=== PATIENT | female | born 2000 | race Hispanic/Latino ===

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

== ENCOUNTER 2018-03-13 21:15 | Inpatient (IN) | payer MEDICAID, OTHER, SELFPAY ==
[2018-03-13 21:43] VITALS: BMI 27.4
[2018-03-13] MEDS: Lactated Ringer's 1,000 ML IV SCH (22:15)
[2018-03-13] MEDS ORDERED: Misoprostol 100 MCG TAB ONE (22:31)
[2018-03-13] MEDS ORDERED: HYDROcodone/Acetaminophen 5/325 mg Tablet PO PRN (22:43)
[2018-03-13] MEDS ORDERED: Ondansetron HCl/PF 4 MG/2 ML Vial IVP PRN (22:43)
[2018-03-13] MEDS ORDERED: Acetaminophen 500 MG TAB PO PRN (22:43)
[2018-03-13] MEDS ORDERED: Lidocaine 1% (PF) 30 ML VIAL SC PRN (22:43)
[2018-03-13] MEDS ORDERED: Misoprostol 100 MCG TAB VAG PRN (22:43)
[2018-03-13] MEDS ORDERED: Ibuprofen 800 MG TAB PO PRN (22:43)
[2018-03-13] MEDS ORDERED: Promethazine HCl 25 MG/ML VIAL IM PRN (22:43)
--- NOTE | 2018-03-13 22:49 | PDOC.LDHP ---
Labor and Delivery H&P Chief complaint: scheduled induction HPI: Patient is a 17 yo at 40.6 by LMP/1t u/s presents for late term induction. She reports good FM, no LOF, vaginal discharge, FLORES, scotoma, LE edema, or pain. She reports occasional contractions and admits to a small amount of vaginal bloody discharge upon arrival to hospital. Current gestational age (weeks): 40 (40.6) Due date: 03/07/18 Dating criteria: last menstrual period, first trimester ultrasound Grav: 1 Para: 0 Current complications: other (anemia of , most recent Hg 9.7 on 02/05/18) Abnormal US findings: No Past Medical History: none Current medications: pre-gt vitamins, iron Previous surgical history: none Social history: none - Physical Exam Vital signs reviewed and normal: yes General: NAD, resting Heart: RRR Lungs: CTAB Abdomen: gravid Extremeties: no edema FHT: category 1 [place] contractions every: q7-10 min - Vaginal Exam cm dilated: 2 (soft) Effacement: 25% Station: -2 - OB Labs Blood type: O RH: positive Antibody Screen: negative HIV: negative RPR: negative HEPSAg: negative 1 hour GCT: negative GBS: negative Urine drug screen: not done Rubella: immune - Assessment L&D Assessment: medically indicated induction at 40.6 by LMP/1t u/s here for IOL for late term. sIUP: labs wnl with exception of anemia. Anemia of : last Hg 9.7, repeat today, continue Fe and PNV FHx of Downs in father of baby's sister: Quad screen negative. Labor: cat 1 strip, cytotec placed at 2245, continue routine labor care and plan for recheck in 3h to determine if need for second cytotec vs pitocin. - Plan Plan: admit to L&D, cervical ripening, labor augmentation if indicated <Eli Carpenter - Last Filed: 03/13/18 22:47> <Chaparro Nolen - Last Filed: 03/13/18 23:08> Allergies/Adverse Reactions: Allergies Allergy/AdvReac Type Severity Reaction Status Date / Time No Known Allergies Allergy Verified 03/13/18 21:39 Attending Addendum - Attending Addendum Date/Time: 03/13/18 [id number] I personally evaluated the patient and discussed the management with Dr. Carpenter. I agree with and repeated the History, Examination, Assessment and Plan documented above with any addition or exceptions noted below. Late term induction. Cytotec placed. Recheck in 4 hours. <Chaparro Nolen - Last Filed: 03/13/18 23:08>
[2018-03-13 23:03] LABS: Hemoglobin 10.2 g/dL (12.0-16.0); Mean Corpuscular HGB CONC 33.8 g/dL (32.0-36.0); Mean Corpuscular Hemoglobin 28.3 pg (25.0-35.0); Mean Corpuscular Volume 83.6 fL (78.0-98.0); Mean Platelet Volume 8.9 fL (7.4-10.4); Platelet Count 246 thou/uL (130-400); RBC Distribution Width 12.9 % (11.5-14.5); White Blood Cell (WBC) Count 11.9 thou/uL (4.8-10.8)
[2018-03-13 23:32] LABS: Syphilis Antibody Nonreactive (Nonreactive); Syphilis Antibody Index 0.03 S/CO (<1.00 Non-Reactive)
[2018-03-14 00:39] LABS: HBSAg Index 0.19 S/CO (0-0.99); Hep B Surf Ag Non-Reactive S/CO (NonReactive)
[2018-03-14] MEDS ORDERED: DISCONTINUE ALL PREVIOUS NARCOTICS FS SCH (02:00)
[2018-03-14] MEDS: Lactated Ringer's 1,000 ML IV SCH ×2 (02:17→06:25)
[2018-03-14] MEDS ORDERED: Lidocaine 1% (PF) 30 ML VIAL ONE (02:20)
[2018-03-14] MEDS ORDERED: Lidocaine HCl/Epinephrine 5 ML AMPUL IJ ONE (02:20)
--- NOTE | 2018-03-14 02:25 | PDOC.LDPN ---
Labor & Delivery Progress Note - Subjective Subjective: painful contractions - Objective Vital signs reviewed and normal: yes General: NAD, resting, breathing through contractions Uterine fundus: palpable contractions Dilation: 3 Effacement: 75% Station: -2 FHT: category 1 [place] contractions every: q2min - Assessment (1) Current Visit: Yes Status: Acute Comment: at 40.6 by LMP/1t u/s here for IOL for late term. sIUP: IOL reviewed, wnl with exception of anemia. Anemia of : last Hg 9.7, repeat today is 10, continue Fe and PNV FHx of Downs in father of baby's sister: Quad screen negative. Labor: cat 1 strip, cytotec placed at 2245, now favorable for pit but pablo q2min currently. Will start pit if no change at next check. Continue routine labor care and plan for recheck in 2h. Patient in pain, will call anesthesia for epidural. Plan: continue plan of care <Eli Carpenter - Last Filed: 03/14/18 02:56> Attending Addendum - Attending Addendum Date/Time: 03/14/18 0621 I personally evaluated the patient and discussed the management with Dr. Carpenter. I agree with the History, Examination, Assessment and Plan documented above with any addition or exceptions noted below. Cat 1, ctx q2-3m. Recheck in 2 hours. Anticipate . <Chaparro Nolen - Last Filed: 03/14/18 06:22>
[2018-03-14] MEDS: Bupivacaine 0.75% 13.4 ML, fentaNYL Citrate/PF 400 MCG in Sodium Chloride 0.9% 78.6 ML EPIDURAL SCH ×2 (02:40→08:14)
[2018-03-14] MEDS ORDERED: Eucerin (Mineral Oil/Petrolatum,White) 30 gm Jar TOP PRN (02:59)
[2018-03-14] MEDS ORDERED: Lactated Ringer's 500 ML IV PRN (02:59)
[2018-03-14] MEDS ORDERED: Acetaminophen 325 MG TAB PO PRN (02:59)
[2018-03-14] MEDS ORDERED: Promethazine HCl 25 MG/ML VIAL IM PRN (02:59)
[2018-03-14] MEDS ORDERED: diphenhydrAMINE 50 MG/ML VIAL IVP PRN (02:59)
[2018-03-14] MEDS ORDERED: Naloxone HCl 0.4 mg/ml Vial IVP PRN ×2 (02:59)
[2018-03-14] MEDS ORDERED: ePHEDrine/0.9% NaCl/PF SYRINGE 50 mg/10 ml SLOW IVP PRN (02:59)
[2018-03-14] MEDS ORDERED: Ondansetron HCl/PF 4 MG/2 ML Vial IVP PRN (02:59)
[2018-03-14] MEDS ORDERED: Communication Order-Pharmacy FS SCH (03:00)
[2018-03-14] MEDS ORDERED: fentaNYL Citrate/PF 400 MCG, Bupivacaine 0.5% 20 ML in Sodium Chloride 0.9% 72 ML EPIDURAL SCH (03:00)
--- NOTE | 2018-03-14 05:04 | PDOC.LDPN ---
Labor & Delivery Progress Note - Subjective Subjective: comfortable - Objective Vital signs reviewed and normal: yes General: NAD, resting Uterine fundus: palpable contractions Dilation: 4 Effacement: 75% Station: -2 FHT: category 1 [place] contractions every: 2min Procedures: SROM- clear fluid - Assessment (1) Current Visit: Yes Status: Acute Plan: continue plan of care -: at 40.6 by LMP/1t u/s here for IOL for late term. sIUP: IOL reviewed, wnl with exception of anemia. Anemia of : last Hg 9.7, repeat today is 10, continue Fe and PNV FHx of Downs in father of baby's sister: Quad screen negative. Labor: cat 1 strip, cytotec placed at 2245, now favorable for pit but pablo q2min currently and making good progress, SVE 4/80/-2. Will start pit if no change at next check. SROM with clear fluid. Continue routine labor care and plan for recheck in 2h. Epidural in place and patient resting comfortably. <Eli Carpenter - Last Filed: 03/14/18 05:02> Attending Addendum - Attending Addendum Date/Time: 03/14/18 0624 I personally evaluated the patient and discussed the management with Dr. Carpenter. I agree with the History, Examination, Assessment and Plan documented above with any addition or exceptions noted below. Cat 1, ctx spaced now to q5m, will start pitocin. Anticipate . <Chaparro Nolen - Last Filed: 03/14/18 06:25>
[2018-03-14] MEDS ORDERED: NS w/ Oxytocin 10 units 500 ML IV SCH (06:30)
--- NOTE | 2018-03-14 08:14 | PDOC.LDPN ---
Labor & Delivery Progress Note - Subjective Subjective: comfortable - Objective Vital signs reviewed and normal: yes General: NAD, resting Uterine fundus: non tender Dilation: 7 Effacement: 90% Station: -2 FHT: category 1 [place] contractions every: q2-4 min IUPC placed: yes - Assessment (1) Current Visit: Yes Status: Acute Plan: continue plan of care -: at 40.6 by LMP/1t u/s here for IOL for late term. sIUP: IOL reviewed, wnl with exception of anemia. Anemia of : last Hg 9.7, repeat today is 10, continue Fe and PNV FHx of Downs in father of baby's sister: Quad screen negative. Labor: cat 1 strip, cytotec placed at 2245, pablo q2-4 min, SVE 7/90/-2. Epidural in place. Pit started at 0630, currently at rate of 6. re-check in 2 hours <Ramón Mishra - Last Filed: 03/14/18 08:11> Attending Addendum - Attending Addendum Date/Time: 03/14/18 2676 I personally evaluated the patient and discussed the management with Dr. Mishra. I agree with the History, Examination, Assessment and Plan documented above with any addition or exceptions noted below. Active labor with expected progress. <Phillip See - Last Filed: 03/14/18 11:37>
--- NOTE | 2018-03-14 10:39 | PDOC.LDPN ---
Labor & Delivery Progress Note - Subjective Subjective: comfortable - Objective Vital signs reviewed and normal: yes General: NAD Dilation: 10 Effacement: 100% Station: 2+ FHT: category 1 [place] contractions every: 3-4 - Assessment (1) Current Visit: Yes Status: Acute Plan: continue plan of care -: at 40.6 by LMP/1t u/s here for IOL for late term. sIUP: IOL reviewed, wnl with exception of anemia. Anemia of : last Hg 9.7, repeat today is 10, continue Fe and PNV FHx of Downs in father of baby's sister: Quad screen negative. Labor: cat 1 strip, cytotec placed at 2245, pablo q2-4 min, SVE complete, +2. Epidural in place. Pitocin stopped 2/2 a period of tachysystole. expectant management
[2018-03-14] MEDS: NS / Oxytocin 40 units/1000ml 1,000 ML IV PRN ×2 (11:59→14:30)
[2018-03-14] MEDS ORDERED: Ampicillin 2 GM in Sodium Chloride 0.9% 100 ML IVPB SCH (12:00)
[2018-03-14] MEDS: HYDROcodone/Acetaminophen 5/325 mg Tablet PO PRN ×2 (13:51→18:12)
--- NOTE | 2018-03-14 13:54 | OP-2 ---
DELIVERING PHYSICIAN: Dr. Ramón Mishra, Dr. Charly Zhang. ATTENDING: Dr. Phillip See. PROCEDURE: Spontaneous vaginal delivery. ANESTHESIA: Epidural. ESTIMATED BLOOD LOSS: 150 mL. PREOPERATIVE DIAGNOSES: 1. Term intrauterine in labor. 2. Induction of labor for late term. 3. Maternal fever. POSTOPERATIVE DIAGNOSIS: 1. Term intrauterine , delivered. 2. Induction of labor for late term. 3. Maternal fever. INDICATIONS: A 17-year-old female G1 ,P1 presented to L&D for induction due to late term. DELIVERY NOTE: This is a 17-year-old female G1, P1-0-0-1, at 40 and 6 weeks who delivered a viable f emale infant at 12:10 p.m. Following an uneventful antepartum course, vigorous female was delivered over an intact perineum in the right occipital anterior position. Anterior shoulder and the remainde r of the body delivered. No nuchal cord. The head was held down and the mouth and nares were bulb s uctioned. Cord clamped after a delay of 1 minute and cord blood was collected. Placenta delivered i ntact in the [place] presentation with a 3-vessel cord noted. Fundal massage was performed and the fu ndus was firm. Cervix and vagina were inspected. A 2 cm right superficial periurethral tear was not ed. The lesion was repaired with 3 simple interrupted sutures of 3-0 Vicryl. Epidural anesthesia wa s sufficient. went to nursery in good condition and will be started on ampicillin and gentamicin secondary to maternal fever of 100.7. Workup for maternal fever was initiated. Apgars w ere 9 and 9 at 1 and 5 minutes respectively. The patient tolerated the delivery well and went to the after routine recovery and care.
[2018-03-14] MEDS ORDERED: Lanolin Ointment 7 GM TUBE TOP PRN (14:02)
[2018-03-14] MEDS ORDERED: diphenhydrAMINE 25 MG CAP PO PRN (14:02)
[2018-03-14] MEDS ORDERED: NS / Oxytocin 40 units/1000ml 1,000 ML IV SCH (14:02)
[2018-03-14] MEDS ORDERED: Benzocaine/Menthol 20-0.5% 60 ML CAN TOP PRN (14:02)
[2018-03-14] MEDS ORDERED: Adacel (T-DAP) 0.5 ML VIAL IM ONE (14:02)
[2018-03-14] MEDS ORDERED: Milk Of Magnesia 30 ML UDCUP PO PRN (14:02)
[2018-03-14] MEDS ORDERED: Bisacodyl 10 MG SUPP PR PRN (14:02)
[2018-03-14] MEDS ORDERED: Preparation H Ointment 28 GM TUBE PR PRN (14:02)
[2018-03-14] MEDS: Ferrous Sulfate 325 MG TAB PO SCH (14:50)
[2018-03-14] MEDS: Ibuprofen 800 MG TAB PO SCH ×2 (14:50→21:29)
[2018-03-14] MEDS: Docusate Calcium (SURFAK) 240 MG CAP PO SCH (21:30)
[2018-03-15] MEDS: Lactated Ringer's 1,000 ML IV SCH ×4 (00:14→23:08)
[2018-03-15] MEDS: Ibuprofen 800 MG TAB PO SCH ×3 (05:54→21:14)
[2018-03-15 06:58] LABS: Hemoglobin 8.6 g/dL (12.0-16.0); Mean Corpuscular HGB CONC 32.4 g/dL (32.0-36.0); Mean Corpuscular Hemoglobin 28.1 pg (25.0-35.0); Mean Corpuscular Volume 86.5 fL (78.0-98.0); Mean Platelet Volume 8.8 fL (7.4-10.4); Platelet Count 173 thou/uL (130-400); RBC Distribution Width 12.9 % (11.5-14.5); Red Blood Cell (RBC) Count 3.06 mill/uL (4.00-5.20); White Blood Cell (WBC) Count 14.9 thou/uL (4.8-10.8)
[2018-03-15] MEDS: Ferrous Sulfate 325 MG TAB PO SCH ×2 (08:04→16:58)
[2018-03-15] MEDS: Docusate Calcium (SURFAK) 240 MG CAP PO SCH ×2 (08:04→21:13)
[2018-03-15] MEDS: Prenatal Vitamin 1 TAB PO SCH (08:04)
--- NOTE | 2018-03-15 10:42 | PDOC.PP ---
Addendum entered and electronically signed by Ramón Mishra MD 03/15/18 11:16: Maternal Fever - received 1 dose of amp/gent - afebrile since delivery, will monitor Original Note: Post Progress Note Post Day #: 1 Subjective: This morning patient states she is doing well. Ambulating and voiding without difficulty. No fevers overnight. No N/V/D. She has not had a BM or flatus. She reports very minimal bleeding overnight. PO intake tolerated: yes Flatus: no Ambulation: yes Vital Signs (12 hours) Temp Pulse Resp BP 03/15/18 07:15 97.9 F 69 18 106/60 03/15/18 04:05 98.2 F 82 16 104/54 L 03/14/18 23:45 97.7 F 65 18 100/59 L Weight Weight 74.843 kg - Physical Examination General: NAD Cardiovascular: no m/r/g, RRR Respiratory: clear to auscultation bilaterally Abdominal: + bowel sounds, no distention Fundus firm & at: 3cm below umbilicus Extremities: negative homans (B) Neurological: no gross focal deficits Psychiatric: normal affect Result Diagrams: 03/15/18 06:53 Additional Labs: Post Labs Blood Type O POSITIVE 03/13/18 21:52 Hep Bs Antigen Non-Reactive S/CO (NonReactive) 03/13/18 21:52 (1) Status: Acute (2) Status: Acute (3) Normal course Code(s): Z39.2 - ENCOUNTER FOR ROUTINE FOLLOW-UP Status: Acute - Assessment/Plan # Post day 1 - stay 48 hours - bleeding resolved - pain well controlled - standard post care <Ramón Mishra - Last Filed: 03/15/18 10:40> Vital Signs (12 hours) Temp Pulse Resp BP 03/16/18 00:00 97.7 F 69 18 107/62 03/15/18 20:00 97.7 F 77 18 106/62 Weight Weight 74.843 kg Result Diagrams: 03/15/18 06:53 Additional Labs: Post Labs Blood Type O POSITIVE 03/13/18 21:52 Hep Bs Antigen Non-Reactive S/CO (NonReactive) 03/13/18 21:52 <Gretchen López - Last Filed: 03/16/18 04:28> Attending Addendum - Attending Addendum Date/Time: 03/15/18 1026 I personally evaluated the patient and discussed the management with Dr. Mishra and Dr. Nye I agree with the History, Examination, Assessment and Plan documented above with any addition or exceptions noted below. Patient dx with intramniotic infection during labor. Received 1 dose amp/gen. Remains afebrile since delivery. Fundus nontender. No abnormal lochia. Will continue inpatient monitoring. currently on amp/gen until blood cultures negative. Will discuss contraception tomorrow. ABrayMD <Gretchen López - Last Filed: 03/16/18 04:28>
[2018-03-15] MEDS ORDERED: Bupivacaine/Epinephrine 0.25% 30 ML VIAL ONE (15:07)
[2018-03-16] MEDS: Ibuprofen 800 MG TAB PO SCH ×2 (06:00→15:02)
[2018-03-16 07:54] VITALS: BP 101/58; TEMP 98.1
--- NOTE | 2018-03-16 08:18 | PDOC.PP ---
Addendum entered and electronically signed by Ramón Mishra MD 03/16/18 09:54: Intra-amniotic infection - temp 100.7 before delivery - received 1 dose of amp/gent - afebrile PP course Original Note: Post Progress Note Post Day #: 2 Subjective: Mother states she is feeling well this morning. Was afebrile yesterday. She is tolerating PO intake without difficulty. She has had some bleeding, she says about like a regular period. She is ambulating without difficulty. PO intake tolerated: yes Flatus: yes Ambulation: yes Vital Signs (12 hours) Temp Pulse Resp BP 03/16/18 07:52 98.1 F 67 16 101/58 L 03/16/18 06:00 97.9 F 03/16/18 00:00 97.7 F 69 18 107/62 Weight Weight 74.843 kg - Physical Examination General: NAD Cardiovascular: no m/r/g, RRR Respiratory: clear to auscultation bilaterally, non-labored breathing Abdominal: + bowel sounds, no distention Fundus firm & at: 3cm below umbilicus Extremities: negative homans (B) Result Diagrams: 03/15/18 06:53 Additional Labs: Post Labs Blood Type O POSITIVE 03/13/18 21:52 Hep Bs Antigen Non-Reactive S/CO (NonReactive) 03/13/18 21:52 (1) Status: Acute (2) Status: Acute (3) Normal course Code(s): Z39.2 - ENCOUNTER FOR ROUTINE FOLLOW-UP Status: Acute - Assessment/Plan # Post day 2 - , ready for d/c today - bleeding WNL - pain well controlled - , spoke with security sales consultant # Maternal Fever - temp 100.7 before delivery - received 1 dose of amp/gent - afebrile PP course Dispo: f/u for PP clinic visit\ Dr. Chance will be firing pin gauger <Ramón Mishra - Last Filed: 03/16/18 08:47> Vital Signs (12 hours) Temp Pulse Resp BP 03/16/18 09:25 98.1 F 67 16 03/16/18 07:52 98.1 F 67 16 101/58 L Weight Weight 74.843 kg Result Diagrams: 03/15/18 06:53 Additional Labs: Post Labs Blood Type O POSITIVE 03/13/18 21:52 Hep Bs Antigen Non-Reactive S/CO (NonReactive) 03/13/18 21:52 <Gretchen López - Last Filed: 03/16/18 18:31> Attending Addendum - Attending Addendum Date/Time: 03/16/18 1830 I personally evaluated the patient and discussed the management with Dr. Mishra I agree with the History, Examination, Assessment and Plan documented above with any addition or exceptions noted below. No evidence of infections. Afebrile. Lochia appropriate. Breast and bottle. Will need follow up in 2 wks. Nexplanon. ABrayMD <Gretchen López - Last Filed: 03/16/18 18:31>
[2018-03-16] MEDS: Docusate Calcium (SURFAK) 240 MG CAP PO SCH (09:26)
[2018-03-16] MEDS: Prenatal Vitamin 1 TAB PO SCH (09:26)
[2018-03-16] MEDS: Ferrous Sulfate 325 MG TAB PO SCH ×2 (09:26→17:48)
--- NOTE | 2018-03-16 17:27 | PDOC.EVN ---
Event Note - Event Note Event Note: Called to bedside to evaluate L sided ocular redness Mild redness noted on R eye, no purulence Patient states she has some itchiness on the affected side, no visual deficit Does not appear enflamed as charecteristic of viral conjunctivitis, appears to be mild irritation Advise saline drops 2-3 times per day, return to clinic if it should worsen Advised mother to be careful to practice good hand hygiene before touching baby as viral conjunctivitis cannot be ruled out
== END 2018-03-16 18:05 | disposition home or self-care (01) | DRG 774 ==
LOC: L&D 21:15 → 3SW 03-14 14:26
PROVIDERS: ADMIT Emergency Medicine; ATTEND Emergency Medicine
PROC: 3E033VJ Introduction of Other Hormone into Peripheral Vein, Percutaneous Approach (ICD-10-PCS; 2018-03-13)
PROC: 3E0P7VZ Introduction of Hormone into Female Reproductive, Via Natural or Artificial Opening (ICD-10-PCS; 2018-03-13)
PROC: 10E0XZZ Delivery of Products of Conception, External Approach (ICD-10-PCS; principal; 2018-03-14)
PROC: 0UQMXZZ Repair Vulva, External Approach (ICD-10-PCS; 2018-03-14)
DX: O41.1230 Chorioamnionitis, third trimester, not applicable or unspecified (principal); Z37.0 Single live birth; O99.42 Diseases of the circulatory system complicating childbirth; O75.2 Pyrexia during labor, not elsewhere classified; O71.82 Other specified trauma to perineum and vulva; O99.02 Anemia complicating childbirth; R00.0 Tachycardia, unspecified; O90.89 Other complications of the puerperium, not elsewhere classified; H57.8 Other specified disorders of eye and adnexa; Z3A.41 41 weeks gestation of pregnancy; Z82.79 Family history of other congenital malformations, deformations and chromosomal abnormalities
CPT/HCPCS: 36415; 51702; 85027; 86780; 86850; 86900; 86901; 87340; J0290; J1580; J2001; J3010; J3490; J7050

== ENCOUNTER 2019-02-27 20:21 | Emergency (ER) | payer MEDICAID, SELFPAY ==
[2019-02-27] MEDS ORDERED: Ketorolac Tromethamine 30 MG/ML VIAL ONE (21:25)
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
== END 2019-02-27 22:21 | disposition home or self-care (01) ==
LOC: ERS 20:21
DX: S16.1XXA Strain of muscle, fascia and tendon at neck level, initial encounter (principal); V89.2XXA Person injured in unspecified motor-vehicle accident, traffic, initial encounter
CPT/HCPCS: 72125; 96372; J1885